=== PATIENT | female | born 1985 | race Caucasian/White ===

== ENCOUNTER → 2018-12-15 07:53 | Outpatient (CLI) | payer BC | END | disposition home or self-care (01) | LOC: D.MRI 07:53 | DX: M54.6 Pain in thoracic spine (principal); M54.5 Low back pain; Z80.3 Family history of malignant neoplasm of breast ==

== ENCOUNTER → 2018-12-16 15:54 | Outpatient (CLI) | payer BC | END | disposition home or self-care (01) | LOC: D.CT 15:54 | DX: R10.2 Pelvic and perineal pain (principal) ==

== ENCOUNTER 2018-12-29 12:49 | Outpatient (CLI) | payer BC | END 2018-12-29 13:30 | disposition home or self-care (01) | LOC: D.US 12:49 → D.MAMMO 14:15 | PROVIDERS: ATTEND Nurse Practitioner Family | DX: M54.6 Pain in thoracic spine (principal); M54.5 Low back pain ==

== ENCOUNTER 2019-01-29 19:00 | Outpatient (CLI) | payer BC | END 2019-01-29 23:59 | disposition home or self-care (01) | LOC: D.MAMMO 19:00 | PROVIDERS: ATTEND Family Medicine | DX: R92.8 Other abnormal and inconclusive findings on diagnostic imaging of breast (principal) ==

== ENCOUNTER 2019-02-09 08:00 | Outpatient (CLI) | payer BC ==
[2019-02-06 11:40] LABS: CALC OSMOLALITY 276 mosm/kg (275-300); CALCIUM 9.5 mg/dL (8.5-10.1); CARBON DIOXIDE 23.8 mmol/L (21.0-32.0); CHLORIDE - SERUM 105 mmol/L (98-107); CREATININE - SERUM 0.7 mg/dL (0.6-1.3); GLUCOSE 86 mg/dL (74-106); POTASSIUM - SERUM 3.9 mmol/L (3.5-5.1); SODIUM 140 mmol/L (136-145); UREA NITROGEN 9 mg/dL (7-18); eGFR NON AFRICAN AMERICAN > 90 mL/min (90-120)
[2019-02-06 12:25] LABS: BASOPHILS 0.3 % (0-2); EOSINOPHILS 0.5 % (0-7); HEMATOCRIT 41.2 % (36.0-48.0); HEMOGLOBIN 14.3 g/dL (12-16); IMMATURE GRANULOCYTES 0.1 % (0-5); LYMPHOCYTES 30.4 % (15-50); MCH 30.7 pg (26.0-34.0); MCHC 34.7 g/dL (31.0-37.0); MCV 88.4 fL (80.0-100.0); MEAN PLATELET VOLUME 9.4 fL (7.4-10.4); MONOCYTES 6.8 % (2-11); NEUTROPHILS 61.9 % (40-80); PLATELET COUNT 335 10x3/uL (130-400); RBC 4.66 10x6/uL (4.00-5.40); WBC 7.5 10x3/uL (4.8-10.8)
[~2019-02-09 08:00] MED LIST: SYNTHROID75 MCG PO; VITAMIN D5000 UNIT PO
[2019-02-11] MEDS ORDERED: ZANAFLEX2 M1 PO (05:36)
[2019-02-11 10:37] VITALS: BMI 32.4
[2019-02-12] MEDS ORDERED: MOBIC7.5 MG PO (09:27)
[2019-02-12] MEDS ORDERED: NEURONTIN 300300 MG PO (09:27)
[2019-02-12] MEDS ORDERED: PERCOCET 7.5/321 TAB PO (09:28)
== END 2019-02-09 08:01 | disposition home or self-care (01) ==
LOC: D.OPS 08:00 → D.PAN 08:45 → EDSTATUS 08:45 → D.OPS 09:40
PROVIDERS: ATTEND Obstetrics & Gynecology
DX: R10.2 Pelvic and perineal pain (principal); N93.8 Other specified abnormal uterine and vaginal bleeding

== ENCOUNTER 2019-02-11 04:50 | Day surgery (SDC) | payer BC | END 2019-02-12 09:00 | disposition home or self-care (01) | LOC: D.OPS 04:50 → D.LD 09:50 | DX: N93.8 Other specified abnormal uterine and vaginal bleeding (principal); R10.2 Pelvic and perineal pain; N85.2 Hypertrophy of uterus; N72 Inflammatory disease of cervix uteri; N88.8 Other specified noninflammatory disorders of cervix uteri; D25.1 Intramural leiomyoma of uterus; Z01.812 Encounter for preprocedural laboratory examination ==